=== PATIENT | female | born 1965 ===

== ENCOUNTER 2018-09-13 17:16 | Emergency (ER) | payer MEDICARE, OTHER ==
[~2018-09-13] VITALS: Ht 157.5 cm; Wt 54.4 kg
[2018-09-13 21:51] LABS: Hematocrit 39.3 % (33.0-51.0); Hemoglobin 12.4 g/dL (11.5-16.0)
== END 2018-09-13 22:00 | disposition home or self-care (01) ==
LOC: ER 17:16
PROVIDERS: Emergency Medicine
DX: S76.012A Strain of muscle, fascia and tendon of left hip, initial encounter (principal); K64.8 Other hemorrhoids; X58.XXXA Exposure to other specified factors, initial encounter; Z88.6 Allergy status to analgesic agent; Z88.8 Allergy status to other drugs, medicaments and biological substances; F17.210 Nicotine dependence, cigarettes, uncomplicated
CPT/HCPCS: 36415; 85014; 85018; 93971; 99284-25